=== PATIENT | male | born 1995 | race Caucasian/White ===

== ENCOUNTER 2018-08-21 17:09 | Emergency (ER) | payer BC, OTHER ==
[2018-08-21] MEDS ORDERED: Diphtheria,Pertussis(Acell),Tetanus Vaccine 0.5 ML Syringe IM ONE (17:12)
[2018-08-21] MEDS ORDERED: Bacitracin Oint 1 GM U/D Packet TOP ONE (17:12)
--- NOTE | 2018-08-21 17:18 | EDM.PDOC ---
ED HPI GENERAL MEDICAL PROBLEM - General Chief Complaint: Laceration Stated Complaint: LT THUMB CUT Time Seen by Provider: 08/21/18 17:10 Source of Information: Reports: Patient History Limitations: Reports: No Limitations - History of Present Illness INITIAL COMMENTS - FREE TEXT/NARRATIVE: HISTORY AND PHYSICAL: History of present illness: Patient is a 23-year-old male who presents to the emergency room with complaints of left thumb injury. He states he was working on a wheel when his hand went into grab a spoke, resulting in a crush injury and skin avulsion of the palmar surface of the left thumb. He denies any numbness, tingling or weakness of the affected extremity. Unsure of his last tetanus update. Review of systems: As per history of present illness and below otherwise all systems reviewed and negative. Past medical history: As per history of present illness and as reviewed below otherwise noncontributory. Surgical history: As per history of present illness and as reviewed below otherwise noncontributory. Social history: See social history for further information Family history: As per history of present illness and as reviewed below otherwise noncontributory. Physical exam: General: Well-developed and well-nourished 23-year-old male. Alert and oriented. Nontoxic appearing and in no acute distress. HEENT: Atraumatic, normocephalic, pupils equal and reactive bilaterally, negative for conjunctival pallor or scleral icterus, mucous membranes moist, TMs normal bilaterally, throat clear, neck supple, nontender, trachea midline. No drooling or trismus noted. No meningeal signs. No hot potato voice noted. Lungs: Clear to auscultation, breath sounds equal bilaterally, chest nontender. Heart: S1S2, regular rate and rhythm without overt murmur Abdomen: Soft, nondistended, nontender. Negative for masses or hepatosplenomegaly. Negative for costovertebral tenderness. Pelvis: Stable nontender. Skin: Skin avulsion noted to the palmar surface of the left thumb. This does not include the nail bed or dorsal aspect of the hand. Non-circumferential. No soft tissue swelling. In the center of the skin avulsion there is a 2 mm central black dot. Otherwise skin is intact, warm, dry. No lesions or rashes noted. Extremities: Atraumatic, moves all extremities per self without difficulty or deficits, negative for cords or calf pain. Neurovascular unremarkable. Neuro: Awake, alert, oriented. Cranial nerves II through XII unremarkable. Cerebellum unremarkable. Motor and sensory unremarkable throughout. Exam nonfocal. Notes: I did inquire with the patient about the black dot in the center of the skin avulsed area. He denies any electrical burn or burn of any other kind of the thumb. Tetanus was updated today. Bacitracin dressing/nonstick bulky dressing applied. 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 Supportive care measures were reviewed and discussed. Voices understanding and is agreeable to plan of care. Denies any further questions or concerns at this time. Diagnostics: X-ray Therapeutics: Wound care, Tdap, Bacitracin Prescription: Keflex [place] (#20) Impression: Skin avulsion Left thumb injury Plan: 1. Wash the skin gently twice daily. Topical bacitracin dressing over the next 48 hours; then keep clean and dry. Continue to monitor for signs of improvement. 2. Tylenol and/or ibuprofen as needed for pain management. [place] for moderate to sever pain; may cause drowsiness a do not take it will driving her needing to be functioning outside of the house. 3. Follow-up with your primary care provider as we discussed. Return to the ED as needed and as discussed. Definitive disposition and diagnosis as appropriate pending reevaluation and review of above. - Related Data Allergies Allergy/AdvReac Type Severity Reaction Status Date / Time No Known Allergies Allergy Verified 08/21/18 17:10 Home Meds: Home Meds . [No Known Home Meds] 09/16/15 [History] Past Medical History - Past Health History Medical/Surgical History: Denies Medical/Surgical History Social & Family History - Family History Family Medical History: Noncontributory ED ROS GENERAL - Review of Systems Review Of Systems: ROS reveals no pertinent complaints other than HPI. ED EXAM, SKIN/RASH Exam: See Below (See dictation) Course - Vital Signs Last Recorded V/S: Last Vital Signs Temp 97.2 F 08/21/18 17:11 Pulse 87 08/21/18 17:11 Resp 18 08/21/18 17:11 BP 147/85 H 08/21/18 17:11 Pulse Ox 98 08/21/18 17:11 - Orders/Labs/Meds Orders: Active Orders 24 hr Category Date Time Status Communication Order [RC] STAT Care 08/21/18 17:12 Active Vaccines to be Administered [RC] PER UNIT ROUTINE Care 08/21/18 17:12 Active Meds: Medications Discontinued Medications Generic Name Dose Route Start Last Admin Trade Name Elena PRN Reason Stop Dose Admin Bacitracin 1 dose 08/21/18 17:12 08/21/18 17:28 Bacitracin Oint 1 Gm TOP 08/21/18 17:13 1 dose ONETIME ONE Administration Diphtheria/Tetanus/Acell Pertussis 0.5 ml 08/21/18 17:12 08/21/18 17:28 Adacel IM 08/21/18 17:13 0.5 ml .ONCE ONE Administration Departure - Departure Time of Disposition: 17:33 Disposition: Home, Self-Care 01 Clinical Impression: Avulsion of skin of finger Qualifiers: Encounter type: initial encounter Qualified Code(s): S61.209A - Unspecified open wound of unspecified finger without damage to nail, initial encounter Injury of left thumb Qualifiers: Encounter type: initial encounter Qualified Code(s): S69.92XA - Unspecified injury of left wrist, hand and finger(s), initial encounter - Discharge Information Instructions: Deep Skin Avulsion Referrals: PCP,Unknown [Primary Care Provider] - Forms: ED Department Discharge Additional Instructions: The following information is given to patients seen in the emergency department who are being discharged to home. This information is to outline your options for follow-up care. We provide all patients seen in our emergency department with a follow-up referral. The need for follow-up, as well as the timing and circumstances, are variable depending upon the specifics of your emergency department visit. If you don't have a primary care physician on staff, we will provide you with a referral. We always advise you to contact your personal physician following an emergency department visit to inform them of the circumstance of the visit and for follow-up with them and/or the need for any referrals to a consulting specialist. The emergency department will also refer you to a specialist when appropriate. This referral assures that you have the opportunity for follow-up care with a specialist. All of these measure are taken in an effort to provide you with optimal care, which includes your follow-up. Under all circumstances we always encourage you to contact your private physician who remains a resource for coordinating your care. When calling for follow-up care, please make the office aware that this follow-up is from your recent emergency room visit. If for any reason you are refused follow-up, please contact the [facility] Emergency Department at and asked to speak to the emergency department charge nurse. [facility] [address] [place] [address] [facility] [address] [place] [address] 1. Wash the skin gently twice daily. Topical Bacitracin or Neosporin dressing over the next 48 hours; then keep clean and dry. Continue to monitor for signs of improvement. 2. Tylenol and/or ibuprofen as needed for pain management. [place] for moderate to sever pain; may cause drowsiness a do not take it will driving her needing to be functioning outside of the house. 3. Follow-up with your primary care provider as we discussed. Return to the ED as needed and as discussed. - My Orders Last 24 Hours: My Active Orders 08/21/18 17:12 Communication Order [RC] STAT Vaccines to be Administered [RC] PER UNIT ROUTINE - Assessment/Plan Last 24 Hours: My Active Orders 08/21/18 17:12 Communication Order [RC] STAT Vaccines to be Administered [RC] PER UNIT ROUTINE
[2018-08-21 17:42] VITALS: BP 147/85
--- NOTE | 2018-08-21 17:51 | CR ---
INDICATION: Crush injury to left thumb today TECHNIQUE: Finger radiograph 3 views left 1st COMPARISON: None FINDINGS: Bone: No acute fractures or aggressive bone lesions are identified. Joint: The metacarpophalangeal and interphalangeal joints are normal in appearance. Soft tissue: There are numerous punctate density seen in the soft tissues of the 1st digit. IMPRESSIONS: 1. No acute osseous injuries or abnormalities are noted. 2. There are numerous punctate density seen in the soft tissues of the 1st digit. Correlation with clinical exam is recommended to exclude foreign bodies. Dictated by Fran Bass MD @ 08/21/2018 5:50:38 PM Dictated by: Fran Bass MD @ 08/21/2018 17:51:10 (Electronically Signed)
== END 2018-08-21 17:50 | disposition home or self-care (01) ==
LOC: MW.ED 17:09
DX: S61.002A Unspecified open wound of left thumb without damage to nail, initial encounter (principal); Z23 Encounter for immunization; W23.0XXA Caught, crushed, jammed, or pinched between moving objects, initial encounter; Y99.0 Civilian activity done for income or pay
CPT/HCPCS: 73140-26-FA; 73140-FA; 90471; 90715; 99283-25